=== PATIENT | female | born 1965 | race American Indian/Alaskan Native ===

== ENCOUNTER 2017-04-19 13:38 | Emergency (ER) | payer OTHER ==
[2017-04-19 13:52] VITALS: BP 130/71
[2017-04-19] MEDS ORDERED: ZOFRAN ODT PO ONE (15:46)
[2017-04-19] MEDS ORDERED: PROTONIX PO ONE (15:48)
--- NOTE | 2017-04-19 15:52 | Emergency Department Report ---
HPI - General Chief Complaint: Nausea/Vomiting/Diarrhea Time Seen by Provider: 04/19/17 15:18 - HPI HPI: Patient is a 52-year-old female with a past medical history of hypothyroid blood pressure goes on medication presents to ED complaining of nausea for the past 4 days. Patient states she started experiencing nausea Aleksandar night. Patient states no vomiting patient states no appetite and she feels her mouth being dry because of when she drinks. Patient is a recall if she changes enough water. She states she was taking prescribed omeprazole but stopped definite after couple days. Patient states she was seen by her primary care physician 2 weeks ago and a thyroid panel was drawn and everything was normal. She denies fevers/chills/vomiting/abdominal pain/chest pain/shortness of breath/ dizziness or any other problems ED Past Medical Hx - Past Medical History Previous Medical History?: Yes Hx Hypertension: Yes Hx GERD: Yes - Surgical History Past Surgical History?: Yes Additional Surgical History: partial hysterectomy. tonsillectomy - Social History Smoking Status: Never Smoker Substance Use Type: Alcohol - Medications Home Medications: Home Medications Medication Instructions Recorded Confirmed Last Taken Type Ondansetron [Zofran ODT TAB] 8 mg PO Q8H #20 tab.rapdis 04/19/17 Unknown Rx ED Review of Systems ROS: Stated complaint: ABD PAIN, LOST 6 LBS IN 4 DAYS Other details as noted in HPI Constitutional: denies: chills, fever Eyes: denies: eye pain, eye discharge, vision change ENT: denies: ear pain, throat pain Respiratory: denies: cough, shortness of breath, wheezing Cardiovascular: denies: chest pain, palpitations Endocrine: no symptoms reported Gastrointestinal: nausea. denies: abdominal pain, vomiting, diarrhea, constipation, melena, hematochezia Genitourinary: denies: urgency, dysuria, discharge Musculoskeletal: denies: back pain, joint swelling, arthralgia Skin: denies: rash, lesions Neurological: denies: headache, weakness, paresthesias Psychiatric: denies: anxiety, depression Hematological/Lymphatic: denies: easy bleeding, easy bruising Physical Exam - Physical Exam Vital Signs: Vital Signs 04/19/17 13:45 Temperature 98.3 F Pulse Rate 73 Respiratory 16 Rate Blood Pressure 130/71 O2 Sat by Pulse 98 Oximetry Physical Exam: GENERAL: Alert and oriented x3, no apparent distress, Normal Gait, atraumatic. HEAD: Head is normocephalic and a-traumatic. EYES: Extra ocular muscles are intact. Pupils are equal, round, and reactive to light and accommodation. NOSE: Nose symetrical, Nontender,Nares appeared normal. MOUTH:Mouth is well hydrated and without lesions. Tonsils nonerythematous or swollen, Uvula midline, Tongue not elevated. Mucous membranes are moist. Posterior pharynx clear, no exudate or lesions. Patent airways. NECK: Supple. Non edematous, No carotid bruits. No lymphadenopathy or thyromegaly. No C-spine tenderness LUNGS: Symetrical with respiration, No wheezing, no rales or crackles, CTAB. HEART: S1, S2 present, regular rate and rhythm without murmur, no rubs, no gallops. ABDOMEN: No organomegaly was noted,Positive bowel sounds, soft, and non- distended. . Nontender to palpation on all Quadrants, NO CVA tenderness. PSYCHIATRIC: Mood is congruent with affect, denies suicidal or homicidal ideations. SKIN: Warm and dry, No lesions, No ulceration or induration present. ED Course Vital Signs 04/19/17 13:45 Temperature 98.3 F Pulse Rate 73 Respiratory 16 Rate Blood Pressure 130/71 O2 Sat by Pulse 98 Oximetry ED Medical Decision Making - Lab Data Result diagrams: 04/19/17 16:03 04/19/17 16:03 - Medical Decision Making 52-year-old female presents with nausea ED course: Patient administered Zofran. CBC, BMP, urinalysis and UPT ordered. Urinalysis is ordered. CBC within normal limits, BMP mild hyponatremia chloride UPT negative , Urinalysis Discussed findings with patient. She reports feeling a bit better after medication. Discussed the patient could've taken her omeprazole and Zofran as an effort pain. Discussed the patient to follow up with the primary care physician for further management. Patient agrees and states she'll follow up with the primary care physician. Discussed the patient tried to eat and drink fluids. Patient is alert and oriented and she is in no distress. Vital signs are normal Critical care attestation.: If time is entered above; I have spent that time in minutes in the direct care of this critically ill patient, excluding procedure time. ED Disposition Clinical Impression: Nausea alone Disposition: DISCHARGED TO HOME OR SELFCARE Is pt being admited?: No Does the pt Need Aspirin: No Condition: Stable Instructions: Acute Nausea and Vomiting (ED) Prescriptions: Ondansetron [Zofran ODT TAB] 8 mg PO Q8H #20 tab.umadis Referrals: PRIMARY CARE, [Primary Care Provider] - 3-5 Days NORMAN AMIN MD [Referring] - 3-5 Days [facility] [Outside] - 3-5 Days [facility] [Outside] - 3-5 Days [facility] [Outside] - 3-5 Days Forms: Work/School Release Form(ED) Time of Disposition: 17:58
[2017-04-19 16:17] LABS: Hematocrit 35.2 % (30.3-42.9); Hemoglobin 11.7 gm/dl (10.1-14.3); Mean Corpuscular HGB Conc 33 % (30-34); Mean Corpuscular Hemoglobin 29 pg (28-32); Mean Corpuscular Volume 88 fl (79-97); Platelet Count 234 K/mm3 (140-440); Red Blood Count 3.99 M/mm3 (3.65-5.03); Red Cell Distribution Width 14.3 % (13.2-15.2)
[2017-04-19 16:29] LABS: Amylase 34 units/L (27-131); Anion Gap 19 mmol/L; BUN/Creatinine Ratio 23.33; Blood Urea Nitrogen 14 mg/dL (7-17); Calcium 9.1 mg/dL (8.4-10.2); Carbon Dioxide 27 mmol/L (22-30); Chloride 93.3 mmol/L (98-107); Glucose 108 mg/dL (65-100); Lipase 24 units/L (13-60); Potassium 3.9 mmol/L (3.6-5.0); Sodium 135 mmol/L (137-145)
[2017-04-19 18:21] LABS: Bilirubin,Urine NEG (Negative); Blood,Urine MOD (Negative); Ketones,Urine NEG (Negative); Leukocyte Esterase,Urine NEG (Negative); Mucus,Urine 3+ /HPF; Nitrite,Urine NEG (Negative)
[2017-04-19 18:23] LABS: Protein,Urine >500 mg/dL (Negative)
== END 2017-04-19 18:39 | disposition home or self-care (01) ==
LOC: ED 13:38
DX: R11.0 Nausea (principal); I10 Essential (primary) hypertension; K21.9 Gastro-esophageal reflux disease without esophagitis
CPT/HCPCS: 36415; 80048; 81001; 82150; 83690; 84703; 85027; 99283; Q0162